=== PATIENT | female | born 1935 | race Caucasian/White ===

== ENCOUNTER 2016-06-25 16:03 | Inpatient (IN) | payer MEDICARE, OTHER ==
[~2016-06-25] VITALS: Ht 154.9 cm; Wt 56.3 kg
[2016-06-25] MEDS ORDERED: PLEASE ENTER HEIGHT AND WEIGHT MC SCH (16:30)
[2016-06-25] MEDS ORDERED: SODIUM CHLORIDE 0.9% 1,000ML IVBOLUS ONE (16:30)
[2016-06-25 16:36] LABS: HEMOGLOBIN 11.7 g/dL (11.7-16.4)
[2016-06-25 16:50] LABS: BLOOD UREA NITROGEN 26 mg/dL (7-18)
[2016-06-25 17:01] LABS: IS PT STATUS REG ER OR PRE ER? YES
[2016-06-25] MEDS ORDERED: SODIUM CHLORIDE 0.9% 1,000 ML IV ONE (17:37)
[2016-06-25] MEDS ORDERED: ATEN25TA PO (17:49)
[2016-06-25] MEDS ORDERED: HYDR25TA6 PO (17:49)
[2016-06-25] MEDS ORDERED: ASPI-496 PO (17:49)
[2016-06-25] MEDS ORDERED: POTA10TA11 PO (17:49)
[2016-06-25] MEDS ORDERED: ONDANSETRON 2MG/ML, 2ML IVPush PRN (18:00)
[2016-06-25] MEDS ORDERED: MAGNESIUM SULFATE PMX 2GM/50ML 50 ML IV ONE (18:00)
[2016-06-25] MEDS ORDERED: NS + 20MEQ KCL 1,000 ML IV ONE (18:29)
[2016-06-25] MEDS ORDERED: ACETAMINOPHEN 325 MG TABLET PO PRN (18:30)
[2016-06-25] MEDS ORDERED: ONDANSETRON 2MG/ML, 2ML IVP PRN (18:30)
[2016-06-25] MEDS: NS + 20MEQ KCL 1,000 ML IV SCH (18:33)
[2016-06-25 20:23] VITALS: BP 121/75
[2016-06-25] MEDS: HEPARIN 5,000 UNITS/ML, 1ML SQ SCH (21:05)
[2016-06-26 02:08] VITALS: BP 122/61
[2016-06-26] MEDS: HEPARIN 5,000 UNITS/ML, 1ML SQ SCH ×3 (03:18→17:21)
[2016-06-26] MEDS: NS + 20MEQ KCL 1,000 ML IV SCH ×2 (04:00→16:18)
[2016-06-26] MEDS ORDERED: PNEUMOCOCCAL 23 VACCINE IM-VACC ONE (06:00)
[2016-06-26 06:58] LABS: ASPARTATE AMINO TRANSFERASE 30 U/L (15-37); BLOOD UREA NITROGEN 21 mg/dL (7-18)
[2016-06-26 07:03] LABS: IS PT STATUS REG ER OR PRE ER? NO
[2016-06-26] MEDS: POTASSIUM CHLORIDE 10 MEQ TABLET.ER PO SCH (08:21)
[2016-06-26] MEDS: ASPIRIN 81 MG TABLET EC PO SCH (08:21)
[2016-06-26 08:22] VITALS: BP 104/62
[2016-06-26] MEDS ORDERED: ATENOLOL 25 MG TABLET PO SCH (09:00)
[2016-06-26 11:14] LABS: IS PT STATUS REG ER OR PRE ER? NO
[2016-06-26 13:40] VITALS: BP 113/72
[2016-06-26] MEDS ORDERED: ATROPINE SYRINGE 0.1 MG/ML, 10ML ONE (15:00)
[2016-06-26 19:03] VITALS: BP 106/70
[2016-06-26 19:06] VITALS: BP 106/70
[2016-06-27 02:32] VITALS: BP 108/69
[2016-06-27] MEDS: HEPARIN 5,000 UNITS/ML, 1ML SQ SCH (02:47)
[2016-06-27 06:19] LABS: HEMOGLOBIN 10.9 g/dL (11.7-16.4)
[2016-06-27 06:36] LABS: BLOOD UREA NITROGEN 16 mg/dL (7-18)
[2016-06-27 06:39] LABS: ASPARTATE AMINO TRANSFERASE 18 U/L (15-37)
[2016-06-27 06:52] LABS: DIFF TOTAL CELLS COUNTED 100 CELL DIFF
[2016-06-27 06:53] LABS: VERIFY COUNTS? YES
[2016-06-27 07:53] VITALS: BP 125/73
[2016-06-27] MEDS: POTASSIUM CHLORIDE 10 MEQ TABLET.ER PO SCH (08:14)
[2016-06-27] MEDS: ASPIRIN 81 MG TABLET EC PO SCH (08:14)
[2016-06-27] MEDS ORDERED: POTASSIUM PHOSPHATE 44 MEQ in SODIUM CHLORIDE 0.9% 500 ML IV ONE (09:30)
[2016-06-27] MEDS ORDERED: MAGNESIUM SULFATE PMX 2GM/50ML 50 ML IV ONE (09:30)
[2016-06-27] MEDS: NS + 20MEQ KCL 1,000 ML IV SCH (12:00)
[2016-06-27 13:05] VITALS: BP 127/82
[2016-06-27 19:34] VITALS: BP 158/90
[2016-06-28 02:19] VITALS: BP 143/69
[2016-06-28 05:45] LABS: HEMOGLOBIN 10.9 g/dL (11.7-16.4)
[2016-06-28 05:55] LABS: BLOOD UREA NITROGEN 13 mg/dL (7-18)
[2016-06-28 08:15] VITALS: BP 144/88
[2016-06-28] MEDS: ASPIRIN 81 MG TABLET EC PO SCH (09:44)
[2016-06-28] MEDS: POTASSIUM CHLORIDE 10 MEQ TABLET.ER PO SCH (09:44)
[2016-06-28] MEDS ORDERED: MAGNESIUM OXIDE 400 MG TABLET PO ONE (10:00)
[2016-06-28] MEDS ORDERED: NEUTRA PHOS K 250 MG TABLET PO ONE (10:00)
[2016-06-28 12:14] LABS: PATH.CAST-FLAG NOT PRESENT; SPERM-FLAG NOT PRESENT; SRC-FLAG NOT PRESENT; XTAL-FLAG NOT PRESENT; YLC-FLAG NOT PRESENT
== END 2016-06-28 15:10 | disposition home or self-care (01) | DRG 308 ==
LOC: ED 16:17 → EDIP 18:20 → 5SO 19:41 → DCLOUNGE 06-28 14:42
PROVIDERS: ADMIT Internal Medicine; ATTEND Internal Medicine
PROC: 0T9B70Z Drainage of Bladder with Drainage Device, Via Natural or Artificial Opening (ICD-10-PCS; principal; 2016-06-25)
DX: I44.2 Atrioventricular block, complete (principal); N17.0 Acute kidney failure with tubular necrosis; E44.1 Mild protein-calorie malnutrition; N39.0 Urinary tract infection, site not specified; E86.0 Dehydration; R19.7 Diarrhea, unspecified; I95.9 Hypotension, unspecified; G90.8 Other disorders of autonomic nervous system; E87.6 Hypokalemia; E83.42 Hypomagnesemia; I10 Essential (primary) hypertension; Z96.653 Presence of artificial knee joint, bilateral; R74.8 Abnormal levels of other serum enzymes; K21.9 Gastro-esophageal reflux disease without esophagitis; E83.39 Other disorders of phosphorus metabolism; D72.819 Decreased white blood cell count, unspecified; Z92.21 Personal history of antineoplastic chemotherapy; Z92.3 Personal history of irradiation; Z85.038 Personal history of other malignant neoplasm of large intestine; Z90.710 Acquired absence of both cervix and uterus; Z90.89 Acquired absence of other organs; Z68.23 Body mass index [BMI] 23.0-23.9, adult; T44.7X5A Adverse effect of beta-adrenoreceptor antagonists, initial encounter; T50.2X5A Adverse effect of carbonic-anhydrase inhibitors, benzothiadiazides and other diuretics, initial encounter
CPT/HCPCS: 36415; 71010; 80048; 80053; 81001; 82040; 83735; 84100; 84443; 84484; 85025; 85610; 85730; 87077; 87086; 87186; 90732; 93005; 93306; 93880; 96374; J1644; J3480; J3475; J7030; J7040